=== PATIENT | male | born 2000 | race Caucasian/White ===

== ENCOUNTER 2020-08-09 18:13 | Emergency (ER) | payer OTHER, SELFPAY ==
[2020-08-09 18:13] VITALS: BP 123/78; PULSE 85; RESP 16; TEMP 36.7; O2SAT 100; BMI 20.9
--- NOTE | 2020-08-09 18:23 | ED.VIS.GEN ---
History of Present Illness Chief Complaint: Upper Extremity Injury Informant: Patient Narrative: Patient presents with pain of the right wrist. Patient states that he sustained a right wrist hyperextension injury at work today. Does not wish this to be Workmen's Comp. The injury occurred when a rubber trash can came down onto the dorsum of his wrist and somehow his wrist was hyperextended. Past Medical History - Allergies and Home Meds Allergies/Adverse Reactions: Allergies No Known Allergies Allergy (Verified 08/09/20 18:13) Primary Care Physician: Lazaro Cazares DO [STAFF PHYSICIAN] - 10-14 Days if not better Past Medical History: None Surgical History: noncontributory Alcohol: None Review of Systems General: Denies: Chills, Fever, Sweats Eyes: Denies: Visual changes - bilaterally, Diplopia ENT: Denies: Rhinorrhea, Sore throat Cardiovascular: Denies: Chest pain, Palpitations Respiratory: Denies: Dyspnea, Cough, Dyspnea on exertion Gastrointestinal: Denies: Abdominal pain, Nausea, Vomiting, Diarrhea, Melena, Hematochezia Genitourinary: Denies: Dysuria, Hematuria, Frequency Musculoskeletal: Reports: Extremity Pain. Denies: Back pain Skin: Denies: Rash, Wounds Neurological: Denies: Headache, Weakness, Numbness Physical Exam Vital Signs/Narrative: Vital Signs Temp Pulse Resp BP Pulse Ox 08/09/20 18:13 98.0 F 85 16 123/78 H 100 Inital Vital Signs reviewed: Yes General: Well nourished, Well developed, No Acute Distress Head: Normocephalic, Atraumatic Eyes: Perrl, EOMI ENT: Moist mucous membranes, No rhinorrhea Neck: Supple, Nontender Cardiovascular: Regular rate, Regular rhythm, No murmurs Respiratory: No distress, CTA bilaterally, Chest nontender Abdomen: Soft, Nontender, Nondistended, Normal bowel sounds Back: Nontender, Normal Inspection Extremities: No edema, - - Tenderness to palpation over the dorsum of the right wrist. No snuffbox tenderness. No loss of tendon function. Most of his pain is with flexion. Skin: Normal color, No rash Neurological: Alert, Oriented x3, Cranial nerves II-XII grossly intact, Normal Strength, Normal Sensation Psychological: Normal affect, Normal Mood Diagnostic/Tx/Re-eval Clinical Impression(s) from Imaging Studies Wrist X-Ray 08/09/20 18:35 IMPRESSION: Normal x-ray examination of the wrist. Electronically Signed: Gustavo Uribe MD at 19:01 EST , Service support , - Medical Decision Making My interpretation of the plain films of the right wrist are negative for fracture. Patient will have an Estrada wrap placed. We will treat this conservatively follow-up with orthopedics in 10 to 14 days if not improved. ED Disposition - Plan for ED Patient: Disposition: Home or Assisted Living Diagnosis: Right wrist sprain Instructions: ED Wrist Sprain Referrals: Lazaro Cazares DO [STAFF PHYSICIAN] - 10-14 Days if not better
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
[2020-08-09 19:16] VITALS: RESP 17
== END 2020-08-09 19:16 | disposition home or self-care (01) ==
PROVIDERS: Emergency Provider Emergency Medicine; PCP Pediatrics
DX: S63.501A Unspecified sprain of right wrist, initial encounter (principal); W22.8XXA Striking against or struck by other objects, initial encounter; Y93.9 Activity, unspecified; Y92.9 Unspecified place or not applicable; Y99.0 Civilian activity done for income or pay
CPT/HCPCS: 73110; 99282

== ENCOUNTER → 2021-06-22 13:27 | Outpatient (CLI) | payer OTHER, SELFPAY ==
--- NOTE | 2021-06-22 13:32 | RAD_ITS ---
STUDY: X-RAY - RIGHT FOOT CLINICAL: Male, 20 years old. FOOT INJURY. Pain along the proximal first metatarsal region. TECHNIQUE: 3 view(s) of the foot. COMPARISON: None. FINDINGS: Normal talus, calcaneus, and tarsal bones. Normal visualized subtalar, talonavicular, calcaneocuboid, tarsal and tarsometatarsal articulations. Normal metatarsi. Normal metatarsophalangeal joint of the great toe. Normal tibial and fibular sesamoid bones. Normal interphalangeal joint of the great toe. Normal phalanges of the great toe. Normal second through fifth metatarsophalangeal joints. Normal interphalangeal joints and phalanges of the lesser toes. Mild soft tissue swelling RAD/Foot min 3 Views IMPRESSION: Mild soft tissue swelling. Electronically Signed: Bismark Billy MD at 13:56 EDT , Service support ,
== END ==
PROVIDERS: PCP Pediatrics; Referring Provider Pediatrics; Visit Provider Pediatrics
DX: S99.921A Unspecified injury of right foot, initial encounter (principal); X58.XXXA Exposure to other specified factors, initial encounter; Y93.9 Activity, unspecified; Y92.9 Unspecified place or not applicable; Y99.9 Unspecified external cause status
CPT/HCPCS: 73630

== ENCOUNTER 2023-05-10 08:15 | Emergency (ER) | payer MEDICAID, SELFPAY ==
[2023-05-10 08:16] VITALS: BP 134/62; PULSE 90; RESP 16; TEMP 36.7; O2SAT 100; BMI 21.7
[2023-05-10 08:22] VITALS: O2SAT 100
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
--- NOTE | 2023-05-10 09:59 | ED.RN ---
Patient ambulatory to bathroom, gait steady. Returned to bed.
[2023-05-10 10:28] VITALS: BP 135/79; PULSE 72; RESP 15; O2SAT 98
== END 2023-05-10 10:29 | disposition home or self-care (01) ==
PROVIDERS: Emergency Provider Emergency Medicine; Visit Provider Emergency Medicine
DX: S62.344A Nondisplaced fracture of base of fourth metacarpal bone, right hand, initial encounter for closed fracture (principal); S09.90XA Unspecified injury of head, initial encounter; S20.312A Abrasion of left front wall of thorax, initial encounter; V49.40XA Driver injured in collision with unspecified motor vehicles in traffic accident, initial encounter; M54.2 Cervicalgia; S00.83XA Contusion of other part of head, initial encounter; H50.51 Esophoria; Z86.73 Personal history of transient ischemic attack (TIA), and cerebral infarction without residual deficits
CPT/HCPCS: 29125; 70450; 71101; 72125; 73000; 73110; 99285

== ENCOUNTER → 2023-09-08 | Outpatient (CLI) | payer MEDICAID, SELFPAY ==
--- NOTE | 2023-09-08 17:24 | RAD_ITS ---
STUDY: X-RAY - RIGHT ANKLE REASON FOR EXAM: Male, 23 years old. Right ankle and foot pain TECHNIQUE: 3 view(s) of the ankle. COMPARISON: None. FINDINGS: Normal visualized distal tibia and fibula. Normal medial and lateral malleoli. Normal tibiotalar articulation and ankle mortise. Normal visualized talus and calcaneus. The visualized subtalar, talonavicular, calcaneocuboid and tarsal articulations are normal. The soft tissue structures are unremarkable. RAD/Ankle min 3 Views IMPRESSION: Normal x-ray examination of the ankle. Electronically Signed: Celso Manzanares MD at 17:36 EST ,
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
--- OUTSIDE RECORDS SUMMARY | 2023-09-08 17:37 | XMS RPT_ITS | CCD ---
Author Name Unknown Address [address] [place] [address] Organization [facility] Care Team Providers Care Medical Practitioners Name Role Phone CONTRERAS TESFAYE, KELLEE Attending Imanvapower lable CONTRERAS TESFAYE, KELLEE Primary Care Unavai lable Results Test Name Value Interpretation Reference Range Facil ity Encounters Encounter Date Encounter Type Care Provider Facility Start: 08-31-2023 End: 09-01-2023 ambulatory KELLEE CHAIREZ APRN-SHRUTHI Facility:B Payers Date Payer Category Payer Unknown [id number] 2000 Unknown [id number] Summary Purpose Family History No Family History Records FoundNo Family History Records Found Advance Directives No Advanced Directives Records FoundNo Advanced Directives Records Found Additional Source Comments (unrecognized sect ion and content) No Status Records FoundNo Status Records Found INFORMATION SOURCE (unrecogn ized section and content) DATE CREATED AUTHOR AUTHOR'S ORGANIZ ATION 09/03/2023 [facility] [place] ([place]) FOR RECORDS PERTAINING TO PATIENTS WHO ARE OR HAVE BEEN ENROLLED IN A CHEMICAL DEPENDENCY/SUBSTANCEABUSE PROGRAM, SOME INFORMATION MAY BE OMITTED. This clinical summary was aggregated from multiple sources. Caution should be exercised in using it in the provision of clinical care. This summary normalizes information from multiple sources, and as a consequence, information in this document may materially change the coding, format and clinical context of patient data. In addition, data may be omitted in some cases. CLINICAL DECISIONS SHOULD BE BASED ON THE PRIMARY CLINICAL RECORDS. [facility]. provides no warranty or guarantee of the accuracy or completeness of information in this document.
== END | disposition home or self-care (01) ==
PROVIDERS: Referring Provider Physician Assistant Surgical; Visit Provider Physician Assistant Surgical
DX: S96.911A Strain of unspecified muscle and tendon at ankle and foot level, right foot, initial encounter (principal); X58.XXXA Exposure to other specified factors, initial encounter
CPT/HCPCS: 73610; 73630

== ENCOUNTER 2023-12-02 11:49 | Emergency (ER) | payer MEDICAID, SELFPAY ==
[2023-12-02 11:49] VITALS: BP 146/51; PULSE 68; RESP 14; TEMP 35.7; O2SAT 99; BMI 22.4
--- NOTE | 2023-12-02 11:56 | EKG12_ITS ---
Test Reason : CP Blood Pressure : / mmHG Vent. Rate : 067 BPM Atrial Rate : 000 BPM P-R Int : 000 ms QRS Dur : 086 ms QT Int : 388 ms P-R-T Axes : 000 070 063 degrees QTc Int : 409 ms Accelerated Junctional rhythm Abnormal ECG Confirmed by Lazaro Gerber ([id number]), assistant production editor CONCEPCION LAZARO ([id number]) on 12/04/2023 10:53:36 AM Referred By: LINETTE Confirmed By:Lazaro Gerber
--- NOTE | 2023-12-02 11:59 | ED.VIS.CHEST ---
HPI History of Present Illness Chief Complaint: Chest Pain Detail of Chief Complaint: Chest pain Informant: patient Narrative Narrative: Patient presents with complaint of chest pain that started around 9:30 AM. Patient states that he had gotten up from his nap and when he sat up, felt a pop in the anterior central chest. Since that time he said pain in certainly worse with sitting up and movement. Denies any other injuries otherwise. Denies recent travel or surgery. Denies recent illness. Patient took some ibuprofen but continues to experience discomfort. [facility] Medical History (Updated 12/02/23 @ 12:[address] Damon Bonds, DO) ADHD CVA (cerebral vascular accident) Fracture of fourth metacarpal bone of right hand Home Medications trazodone 50 mg tablet 50 mg PO QHS 09/08/23 [History Last Taken Unknown] atomoxetine 18 mg capsule 18 mg PO DAILY 12/02/23 [History Last Taken Unknown] hydroxyzine HCl 25 mg tablet 25 mg PO DAILY 12/02/23 [History Last Taken Unknown] sertraline 25 mg tablet 25 mg PO DAILY 12/02/23 [History Last Taken Unknown] Allergy/AdvReac Type Severity Reaction Status Date / Time No Known Allergies Allergy Verified 12/02/23 11:50 Surgical History No pertinent past surgical history Social History Smoking Status: Current every day smoker tobacco type: e-cigarettes ROS ROS ED Review of Systems ROS Unobtainable: other Constitutional Constitutional ED: Reports lethargy; Denies chills, fever(s), sweats or weight loss Eyes Eyes: Denies blurry vision, change in vision or diplopia ENT ENT ED: Denies rhinorrhea or sore throat Cardiovascular Cardiovascular: Reports chest pain; Denies orthopnea or racing heartbeat Respiratory/Chest Respiratory/Chest: Denies cough, dyspnea, dyspnea on exertion, orthopnea or sputum Gastrointestinal Gastrointestinal: Denies abdominal pain, diarrhea, nausea or vomiting Genitourinary Genitourinary ED: Denies dysuria, hematuria or urinary frequency Musculoskeletal Musculoskeletal: Denies arthralgias, back pain, myalgias or neck pain Integumentary Denies abscess, Abrasions or rash Neurologic Neurologic: Denies headache(s) or weakness Psychiatric Psychiatric: Denies anxiety, depression or suicidal thoughts Endocrine Endocrinology: Denies polydipsia, polyphagia or polyuria Hematologic/Lymphatic Hematologic/Lymphatic: Denies easy bleeding, easy bruising or lymphadenopathy Allergic/Immunologic Allergic/Immunologic ED: Denies mouth swelling, tongue swelling or urticaria EXAM Physical Exam Const Vital Signs: 12/02/23 11:49 12/02/23 12:13 12/02/23 12:52 Temperature 96.2 F L 98.2 F Temperature Source Temporal Pulse Rate 68 54 L Respiratory Rate 14 16 Respiratory Effort Normal Non-Labored Blood Pressure 146/51 H 135/70 H Blood Pressure Mean 82 91 Pulse Ox 99 97 Oxygen Delivery Method Room Air Positive well nourished and well developed General Appearance ED: well developed and NAD HEENT Reports TM's clear and moist mucous membranes normocephalic and atraumatic; Negative for trauma or tenderness Tympanic Membrane ED: Yes TM's clear Eyes PERRL and EOMs intact bilaterally General Eye ED: Negative for pale conjunctiva or scleral icterus Neck no lymphadenopathy, supple and no JVD General: Negative for tenderness Chest Wall inspection of chest normal and palpation of chest normal Chest Narrative: Tenderness palpation over the anterior chest wall diffusely about the sternum. There is no erythema or warmth or obvious deformity. Chest: Negative for tenderness Resp normal respiratory effort and clear to auscultation bilaterally Effort and Inspection: Negative for respiratory distress or pain with movement Auscultation: Negative for rhonchi, wheezes or diminished lung sounds Cardio regular rate, regular rhythm, S1 normal heart sound, S2 normal heart sound and no murmurs Peripheral Pulses: pulses 2+ throughout GI normal to inspection, nondistended, normoactive bowel sounds, soft to palpation, non-tender, non-distended and no masses Back/Spine no CVA tenderness and no thoracic nor lumbar tenderness Extremity normal to inspection General Extremety ED: Negative for edema General Extremity: Negative for edema Neuro oriented x3, CN's II-XII intact bilaterally, no sensory deficits noted and gait normal Sensorium / Orientation: awake, alert, oriented to person, oriented to place and oriented to time Motor Exam: strength 5/5 throughout and strength abnormal Psych mental status grossly normal Skin no rashes or lesions noted and no wounds MDM MDM MDM Narrative Medical decision making narrative: Patient presents with sudden chest pain as he was sitting up. Clinically suspect chest wall strain. EKG and chest x-ray unremarkable. Advised patient on using ibuprofen or Tylenol for discomfort. Patient to follow-up with primary care physician within next 3 to 5 days. He is advised to return if worsening pain, increasing shortness of breath, or condition worsen anyway. Radiography Diagnostic Testing: Clinical Impression(s) from Imaging Studies Chest X-Ray 12/02/23 12:04 IMPRESSION: No radiographic evidence of acute cardiopulmonary disease. Electronically Signed: Garo James MD at 12:42 EDT , 2 view chest x-ray obtained interpreted by myself as no evidence of infiltrate or pneumothorax or pneumomediastinum. Radiology in agreement. EKG Initial EKG: Attestation: I personally reviewed and interpreted this EKG as follows: Comments: Sinus rhythm with rate of 67 bpm with no acute ST segment changes, no evidence for pericarditis, normal QTc Discharge Plan Triage Chief Complaint: Chest Pain ED Provider: Damon Bonds Dx/Rx/DC Orders Clinical Impression: Strain of chest wall Instructions: ED Chest Wall Strain Prescriptions: No Action trazodone 50 mg tablet 50 mg PO QHS Patient Comments: TAKE ONE TABLET BY MOUTH AT BEDTIME sertraline 25 mg tablet 25 mg PO DAILY hydroxyzine HCl 25 mg tablet 25 mg PO DAILY atomoxetine 18 mg capsule 18 mg PO DAILY Primary Care Provider: Armen Baker Referrals: Armen Baker MD [Primary Care Provider] - 3-5 Days Care Physician,No Primary [Non-Staff] - Disposition Disposition: Home, Self Care Discharge Date/Time: 12/02/23 12:52
--- NOTE | 2023-12-02 12:04 | RAD_ITS ---
INDICATION: chest pain EXAMINATION/TECHNIQUE: X-RAY - XR Chest 2 Views COMPARISON: No relevant prior comparison study available FINDINGS: LINES/DEVICES: None. LUNGS: No consolidation, edema or effusion. No pneumothorax. MEDIASTINUM AND CARDIOVASCULAR STRUCTURES: Cardiac silhouette not enlarged. Central airways and mediastinal contour are unremarkable. BONES AND SOFT TISSUES: Unremarkable. RAD/Chest PA and Lateral IMPRESSION: No radiographic evidence of acute cardiopulmonary disease. Electronically Signed: Garo James MD at 12:42 EDT ,
[2023-12-02 12:52] VITALS: BP 135/70; PULSE 54; RESP 16; TEMP 36.8; O2SAT 97
== END 2023-12-02 12:52 | disposition home or self-care (01) ==
PROVIDERS: Emergency Provider Emergency Medicine; PCP Family Medicine; Visit Provider Emergency Medicine
DX: S29.011A Strain of muscle and tendon of front wall of thorax, initial encounter (principal); X58.XXXA Exposure to other specified factors, initial encounter; F17.290 Nicotine dependence, other tobacco product, uncomplicated; Z79.899 Other long term (current) drug therapy
CPT/HCPCS: 71046; 93005; 99282

== ENCOUNTER 2023-12-25 10:30 | Outpatient (RCR) | payer MEDICAID, SELFPAY ==
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
--- NOTE | 2023-10-13 10:48 | HP.PTREVAL ---
Re-Evaluation Intro: KELLEE CHAIREZ, NATIVIDAD-C, It has been my pleasure to treat VANESSA COLINDRESJAYLENE Virgen. over the last 7 visits for R LE weakness. Please see the progress note below for an update on the physical therapy plan of care! Subjective Subjective: I feel good today Objective Objective/Function: R ankle DF ROM [address] MMT: 26 #F Pt is I with HEP Pt has made progress at this time. Still needs functional increase in ROM and strength of R ankle Plan Plan Plan: R ankle stretching and mobilizations, gait training, balance and proprio, R ankle strengthening, and HEP Balance/Gait/Functional tests Balance/Special Test Scores Lower Extremity Functional Score: 56 Goals Goals Goal 1:: Increase R ankle DF ROM x 30 degrees to aid with ambulation Goal Time Frame: 4-6 Weeks Goal Progress: Progressing Goal 2:: Increase R ankle DF strength x 5 #F to aid with stair negotiation Goal Time Frame: 4-6 Weeks Goal Progress: Progressing Goal 3:: I with HEP Goal Time Frame: 4-6 Weeks Goal Progress: Goal Met Anticipated Interventions Anticipated Interventions Patient/Client Instruction: Educate patient on: Condition and Plan of Care For the Purpose of:: To improve self management Therapeutic Exercise to Include: Strength training, Endurance training, Balance training, Flexibilty training, Gait and locomotor training, Passive ROM and Active ROM For the Purpose of:: To decrease pain, To increase ROM and To improve muscle performance and motor function Re-Evaluation Ending Re-evaluation ending: Please do not hesitate to contact me at [phone] by phone or if you have questions or concerns regarding this new plan of care! Sincerely, Cameron Ayala, PT, ATC
--- NOTE | 2023-12-25 12:02 | HP.PTDCSUM ---
Discharge Summary D/C summary: It has been my pleasure to treat VANESSA ROSS . referred by NAJMA MENARD, with the diagnosis of R LE weakness for a total of 16 visit(s). Discharge Date: 12/25/23 Please see the following information for a summary of their discharge status. Subjective Subjective: Pt. reports overall doing well. No major issues. He did have some questions about playing basketball and ankle instability. I talked to him about his ankle being in PF open pack positioning causing it to be unstable with sports. I recommended standard ankle brace just with sports. Pt. consents. Pain R ankle: Pain Intensity (Out of 10): 0 Overall Improvement % Improvement: 70 Objective Objective/Function: ROM: R ankle: PF full motion, DF 0deg (active), 5deg (passive) MMT: R ankle: PF 49.0#, 15.9#; knee: 47# ext, flexion 26.6# L ankle: 41.3#, DF 32.9#; knee: ext 53.1#, flexion 27.3# GAIT: pt. ambulates with marked PF during initial contact and stance phase. He is able to stand with heel down in neutral positioning, but difficult to do so when walking. STAIRS: Pt. able to complete with out HR, but does have increased plantar flexion. Pt. given sit to stand with elevated heels, calf stretch, DF band strengthening, clamshell and bridge for HEP. Goals Goal 1:: Increase R ankle DF ROM x 30 degrees to aid with ambulation Goal Progress: Progressing Goal 2:: Increase R ankle DF strength x 5 #F to aid with stair negotiation Goal Progress: Goal Met Goal 3:: I with HEP Goal Progress: Goal Met Plan Plan: Pt. to be DC from PT at this point in time. Pt. still has some difficulty with DF and with calf stretching. He has improved though. He will be DC to HEP at this point in time. D/C Information Discharge Comments: Pt. was treated for his imbalance and difficulty with walking. He is functional, but does have some muscle tightness and spasticity in his R calf. Pt. will beD DC to HEP at this point in time. d/c sentence: If there are questions or concerns regarding this patient's physical therapy, please feel free to call me at [phone]. Thank you for the referral of this patient. Sincerely, Blanco Davis, DPT Balance/Gait/Functional tests Balance/Special Test Scores Lower Extremity Functional Score: 56 Improvement % Improvement: 70
== END 2023-12-25 12:21 | disposition home or self-care (01) ==
LOC: PT 10:30
PROVIDERS: Referring Provider Nurse Practitioner Family; Visit Provider Nurse Practitioner Family
DX: R29.898 Other symptoms and signs involving the musculoskeletal system (principal); Z86.73 Personal history of transient ischemic attack (TIA), and cerebral infarction without residual deficits
CPT/HCPCS: 97110; 97140; 97161; 97530

== ENCOUNTER 2024-02-03 15:29 | Emergency (ER) | payer MEDICAID, SELFPAY ==
[2024-02-03 15:30] VITALS: BP 132/76; PULSE 76; RESP 19; TEMP 36.8; O2SAT 98; BMI 22.8
--- NOTE | 2024-02-03 15:46 | EDS_ITS ---
HPI History of Present Illness Chief Complaint: Seizure [facility] Medical History Fracture of fourth metacarpal bone of right hand ADHD CVA (cerebral vascular accident) Home Medications ?Medication ?Instructions ?Recorded ?Last Taken ?Type trazodone 50 mg tablet 50 mg PO QHS 09/08/23 Unknown History atomoxetine 18 mg capsule 18 mg PO DAILY 12/02/23 Unknown History hydroxyzine HCl 25 mg tablet 25 mg PO DAILY 12/02/23 Unknown History sertraline 25 mg tablet 25 mg PO DAILY 12/02/23 Unknown History Allergy/AdvReac Type Severity Reaction Status Date / Time No Known Allergies Allergy Verified 12/02/23 11:50 Surgical History No pertinent past surgical history Social History Smoking Status: Current every day smoker tobacco type: e-cigarettes EXAM Physical Exam Const Vital Signs: 02/03/24 15:30 02/03/24 16:29 Temperature 98.3 F Temperature Source Oral Pulse Rate 76 75 Respiratory Rate 19 H 18 Blood Pressure 132/76 H 131/74 H Blood Pressure Mean 94 93 Pulse Ox 98 96 Oxygen Delivery Method Room Air Room Air MDM MDM MDM Narrative Medical decision making narrative: HISTORY OF PRESENT ILLNESS: 23-year-old male presents with concern for right hand tremor. Notes staring spell for ~3 minutes. Notes hx of similar. No recent seizures. NO drug use, no vomiting, no head trauma. NO urinary complaints, cough, fever. Notes he has been under a lot of stress. Patient notes he was conscious for this event. Per bystanders/caregiver patient was complaining of right upper extremity tremor and then started staring to space for possibly 3 minutes he cannot get him to respond during this time. They deny any loss of consciousness fall or head trau ma. REVIEW OF SYSTEMS: Pertinent positives: Right hand tremor, starring spells. Pertinent negatives: Visual disturbance, focal weakness, numbness, tingling, loss of consciousness PHYSICAL EXAM: Nursing triage notes reviewed, Vital signs reviewed Constitutional: please see mdm HENT: MMM, atraumatic normocephalic Eyes: Pupils equal round and reactive to light, Extraocular muscles intact Neck: No stridor, no JVD, full neck ROM Lungs: Clear to auscultation, No wheezing or rales. No increased work of breathing, no conversational dyspnea, no accessory muscle use, no nasal flaring. No respiratory distress noted Heart: Regular rate and rhythm, No murmurs, No rubs and No gallops, 2+ distal pulses (radial, femoral, posterior tibial) in all extremities Abdomen: Soft, there is no tenderness, rigidity, rebound or guarding, no obvious peritoneal signs, no palpable pulsatile abdominal masses, no auscultated abdominal bruit : No CVAT Extremities: No edema Neuro: Alert and oriented x3, neuro exam at baseline, cranial nerves II through XII are intact. No pain with extraocular muscle movement. There is negative test of skew. 5 of 5 strength in upper and lower extremities in flexion extension. Intact sensation to light touch in upper and lower extremity dermatomes. No truncal or extremity ataxia. No dysdiadochokinesia. Normal gait. 2+ reflexes in upper and lower extremities. No meningeal signs. Negative Babinski. NIH of 0. Skin: No rash or lesions noted MEDICAL DECISION MAKING: Chief Complaint: Right hand tremor External records reviewed: CT scan reviewed from [address] scan of the brain specifically no signs of intracranial hemorrhage or mass [facility] records reviewed Factors affecting care: ADHD, anxiety, patient report CVA, seizure hx Social determinants of health: noted vaping History obtained from others: rn complex care staff Consults: none [facility] Narrative: The patient was hemodynamically stable, afebrile and nontoxic-appearing. Exam without focal neurologic deficits. No signs of head trauma. I considered the following differential diagnosis: ICH, mass, focal seizure, electrolyte disturbance, infectious etiology ALL IMAGES (IF OBTAINED) HAVE BEEN PERSONALLY REVIEWED AND INTERPRETED BY MYSELF. 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 MRI would be helpful for further evaluation if clinically warranted. I have personally reviewed the patient's chest x-ray. Chest x-ray is unremarkable for pulmonary edema, pneumothorax, pneumonia or focal cardiopulmonary abnormality. CBC without leukocytosis, severe anemia, no thrombocytopenia. BMP without evidence of significant electrolyte abnormalities, no anion gap, no acute kidney injury. LFTs show no evidence of hepatobiliary pathology. noted mild hyperbilirubinemia of undetermined significance Urinalysis shows no evidence of urinary inflammation suggestive of UTI Alcohol negative The synthesis of the patient's history, physical exam, labs, images suggest no acute abnormality including infectious etiologies, electrolyte disturbances, hypoglycemia, intracranial normality such as ICH or mass. Patient has a history of seizures likely an exacerbation of his underlying disorder. He was instructed not to drive, operate her machinery or swim until he follows up with his neurologist for definitive testing including EEG, possibly MRI and initiation of antiseizure medication. The patient and/or family, caregivers express understanding. The patient and/or family, caregivers agrees with the plan. Shared decision making: I will have a discussion with the patient and or visitors regarding risk/benefits of further testing or admission. They will be made aware of of the risk/benefits inherent in this decision they will be given the opportunity to voice understanding. Total critical care time today provided was at least 0 minutes. This excludes separately billable procedures. Critical care time (if documented) is secondary to the patient having high probability of clinically significant/life threatening deterioration in the patient's condition which required my urgent intervention. Impression: 1. Absence seizure 2. History of seizure Dispo: Discharge home This note was generated with [employer] dictation software. It may contain incorrect words, spelling, and punctuation that were not noted in review of the chart prior to signing. Lab Data Labs: Laboratory Results - last 24 hr 02/03/24 02/03/24 16:05 16:45 WBC 6.9 RBC 4.95 Hgb 14.8 Hct 43.0 MCV 86.9 MCH 29.9 MCHC 34.4 RDW Std Deviation 39.8 RDW Coeff of Tashia 12.6 Plt Count 272 MPV 8.8 Immature Gran % (Auto) 0.300 Neut % (Auto) 60.8 Lymph % (Auto) 29.0 [place] % (Auto) 8.0 Eos % (Auto) 1.2 Baso % (Auto) 0.7 Absolute Neuts (auto) 4.2 Absolute Lymphs (auto) 1.99 Nucleated RBC % 0 Sodium 138 Potassium 3.9 Chloride 106 Carbon Dioxide 26.0 Anion Gap 6 BUN 17 Creatinine 0.96 Estim Creat Clear Calc 132.71 Est GFR (MDRD) Af Amer 125 Est GFR (MDRD) Non-Af 103 BUN/Creatinine Ratio 17.8 Glucose 99 Lactic Acid 1.0 Calcium 9.0 Total Bilirubin 1.60 H AST 24 ALT 24 Alkaline Phosphatase 83 Total Protein 7.4 Albumin 4.2 Globulin 3.2 Albumin/Globulin Ratio 1.3 Urine Color Yellow Urine Clarity Clear Urine pH 8.0 Ur Specific [place] 1.015 Urine Protein Negative Urine Glucose (UA) Normal Urine Ketones Negative Urine Occult Blood Negative Urine Nitrite Negative Urine Bilirubin Negative Urine Urobilinogen Normal Ur Leukocyte Esterase Negative Urine RBC 0 SEEN Urine WBC 0 SEEN Ur Squamous Epith Cells 0 SEEN Urine Bacteria 0 SEEN Urine Mucus 0 SEEN Urine Opiates Screen NEGATIVE Urine Methadone Screen NEGATIVE Ur Barbiturates Screen NEGATIVE Ur Phencyclidine Scrn NEGATIVE Ur Amphetamines Screen NEGATIVE MDMA (Ecstasy) Screen NEGATIVE U Benzodiazepines Scrn NEGATIVE Urine Cocaine Screen NEGATIVE U Cannabinoids Screen NEGATIVE Ur Drug Screen Comment Ethyl Alcohol < 3.0 Radiography Diagnostic Testing: Clinical Impression(s) from Imaging Studies Brain CT 02/03/24 16:02 IMPRESSION: 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 MRI would be helpful for further evaluation if clinically warranted. Electronically Signed: Brian Sidhu MD at 16:59 EDT , Chest X-Ray 02/03/24 16:15 IMPRESSION: No acute cardiopulmonary pathology. Electronically Signed: Brian Sidhu MD at 17:04 EDT , Discharge Plan Triage Chief Complaint: Seizure ED Provider: Darrion Lopez Dx/Rx/DC Orders Prescriptions: No Action trazodone 50 mg tablet 50 mg PO QHS Patient Comments: TAKE ONE TABLET BY MOUTH AT BEDTIME sertraline 25 mg tablet 25 mg PO DAILY hydroxyzine HCl 25 mg tablet 25 mg PO DAILY atomoxetine 18 mg capsule 18 mg PO DAILY Primary Care Provider: KELLEE CHAIREZ Referrals: Armen Baker MD [Non-Staff] - Print Language: Dutch
--- NOTE | 2024-02-03 16:02 | CT_ITS ---
STUDY: CT BRAIN WITHOUT CONTRAST REASON FOR EXAM: Male, 23 years old. seizure RADIATION DOSAGE (If Supplied By Facility): CTDIvol = ( 44.99 ) mGy, DLP = ( 745.49 ) mGycm TECHNIQUE: Transaxial CT imaging of the brain was performed without administration of intravenous contrast material. Individualized dose optimization techniques were used for this CT. COMPARISON: No relevant priors. FINDINGS: Normal soft tissue structures. Normal calvarium. Ventricular asymmetry which may be consistent with developmental variant.. Normal white matter tracts of the cerebral hemispheres. Normal basal ganglia and thalami. Normal brainstem. Normal cerebellum. There is no intracranial hemorrhage. There are no findings of an acute ischemic infarction. Normal visualized paranasal sinuses. 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 MRI would be helpful for further evaluation if clinically warranted. Electronically Signed: Brian Sidhu MD at 16:59 EDT ,
--- NOTE | 2024-02-03 16:03 | EKG12_ITS ---
Test Reason : SEIZURE Blood Pressure : / mmHG Vent. Rate : 072 BPM Atrial Rate : 072 BPM P-R Int : 126 ms QRS Dur : 094 ms QT Int : 390 ms P-R-T Axes : 038 062 052 degrees QTc Int : 427 ms Normal sinus rhythm Normal ECG Confirmed by PHIL FLANAGAN, VALARIE ([id number]), editor in chief newspaper TAYO VIDALES ([id number]) on 02/05/2024 9:51:09 AM Referred By: Confirmed By:VALARIE VILLARREAL MD
--- NOTE | 2024-02-03 16:15 | RAD_ITS ---
STUDY: X-RAY CHEST REASON FOR EXAM: Male, 23 years old. seizure r/o PNA TECHNIQUE: AP portable COMPARISON: December 02, 2023 FINDINGS: The lungs are clear and expanded. There is no demonstrated pleural abnormality. Normal size heart. Normal mediastinum and sandip. Normal visualized pulmonary arteries. Normal visualized aortic arch and descending thoracic aorta. Dorsal spine demonstrates mild dextroscoliosis. Normal visualized ribs, clavicles, and shoulders. There is no demonstrated abnormality of the visualized soft tissue structures of the upper abdomen. RAD/Chest 1 View (Portable) IMPRESSION: No acute cardiopulmonary pathology. Electronically Signed: Brian Sidhu MD at 17:04 EDT ,
[2024-02-03 16:23] LABS: Absolute Lymphocyte Count 1.99 X10^3/uL (0.83-4.51); Absolute Neutrophil Count 4.2 X10^3/uL (2.0-7.7); Basophil# 0.05 X10^3/uL; Basophil% 0.7 % (0-1); Eosinophil# 0.08 X10^3/uL; Eosinophils% 1.2 % (0-5); Hemoglobin 14.8 g/dL (13.0-16.5); Lymphocyte # 1.99 X10^3/ul (0.83-4.51); Mean Corp Hgb Conc 34.4 g/dL (32-36); Mean Corpuscular Hgb 29.9 pg (27.0-32.0); Mean Corpuscular Volume 86.9 fL (80-94); Mean Platelet Vol. 8.8 fl (6.2-12.0); Monocyte# 0.55 X10^3/uL; NRBC Flagged by Analyzer 0 % (0-5); Neutrophil # 4.18 X10^3/uL (2.7-7.7); Neutrophil % 60.8 % (47-70); Platelet Count 272 K/mm3 (150-450); RBC Distribution Width CV 12.6 % (11.6-14.6); RBC Distribution Width SD 39.8 fl (35.1-43.9); Red Blood Count 4.95 M/mm3 (4.6-6.2); White Blood Count 6.9 K/mm3 (4.4-11.0)
[2024-02-03 16:29] VITALS: BP 131/74; PULSE 75; RESP 18; O2SAT 96
[2024-02-03 16:33] LABS: ALB/GLOB Ratio 1.3 RATIO (0.9-2.4); AST(SGOT) 24 U/L (15-37); Alanine Aminotransfer ALT/SGPT 24 U/L (16-61); Albumin, Serum 4.2 g/dL (3.2-5.0); Alkaline Phosphatase 83 U/L (45-117); Anion Gap 6 (5-15); BUN 17 mg/dL (7-18); BUN/Creat Ratio 17.8 RATIO (10-20); Chloride 106 mmol/L (98-107); Creatinine, Serum 0.96 mg/dL (0.70-1.30); EST Glomerular Filtration Rate 103 mL/min (>60); Est Glom Filt Rate - Afr Amer 125 mL/min (>60); Estimated Creatinine Clearance 132.71 ml/min; Globulin 3.2 g/dL (2.2-4.2); Glucose 99 mg/dL (74-106); Potassium 3.9 mmol/L (3.5-5.1); Protein, Total 7.4 g/dL (6.4-8.2); Sodium Level 138 mmol/L (136-145)
[2024-02-03 16:38] LABS: Alcohol, Blood (Medical)-Serum < 3.0 mg/dL
[2024-02-03 16:52] LABS: Bacteria 0 SEEN /hpf (None Seen); Mucous, Urine 0 SEEN /hpf (<or=2+); Red Blood Cells-Urine 0 SEEN /hpf (0-5); Squamous Epithelial Cells - UA 0 SEEN /hpf (0-5); White Blood Cells 0 SEEN /hpf (0-5)
[2024-02-03 16:56] LABS: Color, Urine Yellow (Yellow); Glucose, Dipstick Normal (Normal); Ketone-Dipstick Negative (Negative); Leukocyte Esterase-Dipstick Negative /ul (Negative); Nitrite-Dipstick Negative (Negative); Occult Blood-Urine Negative /ul (Negative); Protein-Dipstick Negative (Negative); Specific Gravity, Urine 1.015 (1.002-1.030); Urine Bilirubin Dipstick Negative (Negative); Urine Clarity Clear (Clear); Urine Urobilinogen Normal (Normal)
[2024-02-03 17:11] LABS: Amphetamine Urine VISTA NEGATIVE (<1000 ng/mL); Barbiturate Urine VISTA NEGATIVE (< 200 ng/mL); Benzodiazepine Urine VISTA NEGATIVE (< 200 ng/mL); Cocaine Urine VISTA NEGATIVE (< 300 ng/mL); Ecstacy Urine VISTA NEGATIVE (< 500 ng/mL); Methadone Urine VISTA NEGATIVE (< 300 ng/mL); PCP Urine VISTA NEGATIVE (< 25 ng/mL); THC Urine VISTA NEGATIVE (< 50 ng/mL); Vista UDS pH Range 6
[2024-02-03 17:40] VITALS: BP 120/87; PULSE 69; RESP 15; TEMP 36.9; O2SAT 97
== END 2024-02-03 17:41 | disposition home or self-care (01) ==
PROVIDERS: Emergency Provider Emergency Medicine; PCP Nurse Practitioner Family; Visit Provider Emergency Medicine
DX: G40.A09 Absence epileptic syndrome, not intractable, without status epilepticus (principal); R25.1 Tremor, unspecified; F90.9 Attention-deficit hyperactivity disorder, unspecified type; E80.7 Disorder of bilirubin metabolism, unspecified; F41.9 Anxiety disorder, unspecified; F17.290 Nicotine dependence, other tobacco product, uncomplicated; Z79.899 Other long term (current) drug therapy
CPT/HCPCS: 70450; 71045; 80053; 80307; 80320; 81001; 83605; 85025; 93005; 99283; A4216; G0480